=== PATIENT | male | born 1980 | race Caucasian/White ===

== ENCOUNTER → 2021-12-05 07:08 | Outpatient (CLI) | payer OTHER, SELFPAY ==
--- NOTE | 2021-12-05 07:14 | DI.MRI.S_ITS ---
PROCEDURE: MR LUMBAR SPINE WO CON INDICATIONS: Radiculopathy, lumbar region TECHNIQUE: Noncontrast sagittal T1 spin echo and T2 fast echo, sagittal STIR, and T2 fast spin echo through the lumbar spine. In cases with scoliosis, additional coronal T2 fast spin echo may be performed. COMPARISON: None. FINDINGS: Image quality: Excellent. Alignment and Curvature: Normal vertebral body height and alignment. Bone Marrow: No suspicious focal marrow signal abnormality or bone marrow edema. Spinal Cord: Normal position and appearance of the conus. Regional Soft Tissues: Prevertebral and paraspinous soft tissues are within normal limits T12-L1: Normal appearance. L1-L2: Normal appearance. L2-L3: Normal appearance. L3-L4: Disc bulge flattens the ventral thecal sac with abutment and perhaps minimal displacement of the descending L4 nerve roots in both subarticular zones. Foraminal components of the disc bulge and facet hypertrophy combine to produce mild bilateral neural foraminal stenosis. L4-L5: Severe bilateral subarticular zone stenosis and overall moderate spinal canal stenosis due to diffuse disc bulge with a superimposed broad-based posterior disc protrusion and a focal extrusion in the central and right paracentral zones. There is suspected impingement of the descending L5 nerve roots within both subarticular zones. Disc material appears to compress the L5 nerve roots against the adjacent facets. Foraminal components of the disc bulge and facet hypertrophy combine to produce mild bilateral neural foraminal stenosis. L5-S1: Diffuse disc bulge with displacement and possible impingement of the descending S1 nerve roots in both subarticular zones, both of which are interposed between disc and facet material (series 7, image 5). No neural foraminal stenosis. IMPRESSION: Changes in the lower lumbar spine, worst at L4-L5 and L5-S1 with suspected impingement of the descending L5 and S1 nerve roots within the subarticular zones at these levels, respectively. Dictated by: Ameya Ham M.D. on 12/05/2021 at 11:25 Approved by: Ameya Ham M.D. on 12/05/2021 at 11:28
== END ==
DX: M51.16 Intervertebral disc disorders with radiculopathy, lumbar region (principal); M51.17 Intervertebral disc disorders with radiculopathy, lumbosacral region
CPT/HCPCS: 72148